=== PATIENT | male | born 1955 | race Caucasian/White ===

== ENCOUNTER 2017-01-04 09:41 | Inpatient (IN) | payer OTHER ==
[2016-12-31 10:56] LABS: HEMATOCRIT 39.7 % (40.0-51.0); HEMOGLOBIN 12.6 g/dL (13.6-17.8)
[2016-12-31 11:14] LABS: CALCIUM, SERUM 9.3 MG/DL (8.5-10.4); CHLORIDE, SERUM 102 MMOL/L (96-112); CREATININE 0.93 MG/DL (0.70-1.30); GFR AFRICAN AMERICAN 104 ML/MIN (>=60); GFR NON AFRICAN AMERICAN 90 ML/MIN (>=60); GLUCOSE, SERUM 179 MG/DL (60-99); POTASSIUM, SERUM 4.8 MMOL/L (3.5-5.3); SODIUM, SERUM 138 MMOL/L (135-148)
[2016-12-31 11:18] LABS: BUN (BLOOD UREA NITROGEN) 16 MG/DL (6-23); CO2 (CARBON DIOXIDE) 29 MMOL/L (24-34)
[2017-01-03 15:00] LABS: ALBUMIN 4.2 G/DL (3.5-5.0); ALKALINE PHOSPHATASE 85 U/L (45-117); SGOT(AST) 13 U/L (5-40); SGPT(ALT) 16 U/L (5-65); TOTAL PROTEIN 7.5 G/DL (6.0-8.5)
[2017-01-03 15:01] LABS: DIRECT BILIRUBIN < 0.1 MG/DL (0.0-0.4); INDIRECT BILIRUBIN(NOT ORDER) 0.1 MG/DL (0.1-0.9); TOTAL BILIRUBIN 0.2 MG/DL (0-1.2)
--- NOTE | ~2017-01-04 | DS ---
Discharge Summary [id number] [facility] [place] [address] NAME: GILMA PEOPLES : 59 STATUS : DIS IN PAT#: [id number] AGE: 61 ADM/REG DATE : 01/04/17 MR#: [id number] REPORT SERV DATE: 01/19/17 DICTATED BY: OK RESENDEZ DATE: 01/18/17 REPORT STATUS : Draft TRANSCRIBED BY: MARY LOU DATE: 01/18/17 Data Collection from hospitalization DISCHARGE DIAGNOSIS(ES): 1. L5-S1 spondylolisthesis with dynamic instability. 2. L4 through S1 disk disease and stenosis. 3. Lumbar radiculopathy. 4. Diabetes. 5. Hypertension. 6. Crawford esophagus. 7. Restless legs syndrome. 8. Hearing loss. 9. Gastroesophageal reflux disease. 10.Coronary artery disease. 11.History of myocardial infarction. 12.Hepatitis C. 13.Osteoarthritis. 14.Neuropathy. 15.Chronic obstructive pulmonary disease with asthma and emphysema. 16.Obstructive sleep apnea-on BiPAP at bedtime. 17.Congestive heart failure. 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 19.Depression. 20.Stage IV liver disease. 21.Former smoker. CONSULTATIONS: Karen Contreras NP PROCEDURES PERFORMED: Right-sided L4-5 and L5-S1 transforaminal lumbar interbody fusion, minimal access spine technology, local morcellized autograft, allograft bone matrix, neuromonitoring, operative microscope, placement of percutaneous pedicle screws from Medtronic L4 through S1 bilaterally, placement of Medtronic PEEK interbody spacer L4-L5, and use of intraoperative O-arm CT scan with computer navigation, 01/04/2017. PATHOLOGY: Spine, lumbar bone and tissue-fibrocartilage consistent with intervertebral disk. Benign bone fragments with degenerative changes. MEDICATIONS: Coreg 12.5 mg every morning, Colace 100 mg twice a day, Neurontin 300 mg three times a day, Prinivil 40 mg daily, melatonin 5 mg at bedtime, multivitamins one tablet daily, Prilosec 20 mg daily, MiraLAX powder one packet twice a day, Klor-Con 20 mEq daily, Zoloft 50 mg twice a day, Mylicon 80 mg after meals, Spiriva one capsule via inhaler daily, Tylenol 650 mg every four hours as needed, Mylanta 30 mL as needed, Dulcolax 15 mg as needed, Flexeril 10 mg every 8 hours as needed, Glucophage 500 mg at bedtime and 1000 mg as instructed, milk of magnesia 30 mL twice a day as needed, Percocet 5/325 one tablet every four hours as needed, Mylicon 80 mg at bedtime as needed, Ventolin one puff via inhaler every six hours as needed, aspirin 81 mg daily, and Flexeril 10 mg one tablet every 8 hours as needed for pain or spasm. Discharge Summary [address] [place]. [address] NAME: GILMA PEOPLES : 59 STATUS : DIS IN PAT#: [id number] AGE: 61 ADM/REG DATE : 01/04/17 MR#: [id number] REPORT SERV DATE: 01/19/17 DICTATED BY: OK RESENDEZ DATE: 01/18/17 REPORT STATUS : Draft TRANSCRIBED BY: MARY LOU DATE: 01/18/17 CONDITION AT DISCHARGE: Stable. DISPOSITION: The patient was discharged to [facility] on a diabetic diet with activities as instructed. HOSPITAL COURSE: This is a 61-year-old man who has intractable lower back and right lower extremity pain. He had undergone a recent right total hip arthroplasty but continued to have rather severe hip and leg pain. He said that he had a new leg length difference following the hip replacement and perhaps put some additional pressure on his spine. Treatment options were discussed, and it was elected to proceed with surgical intervention. He was admitted to the hospital at this time for further evaluation and treatment. Upon admission, he was taken to the operating room where he underwent the above-mentioned procedure. He tolerated this well and there were no complications. Postoperatively, he was seen by Karen Contreras regarding medical management. White blood cell count was 14.1. Creatinine level was 1.06. The patient has type 2 diabetes and said that he is normally just on metformin at home. His metformin was presently on hold postoperatively. He said that he checks his blood sugars once in the morning. He was placed on cardiac/diabetic diet. Level 2 sliding scale insulin was started. We were going to initiate hypoglycemia protocol. He would also undergo diabetes education. He does have congestive heart failure with an ejection fraction of 22% and a history of hypertension. He is on Coreg and this was continued as well as his Lasix. Potassium was going to be discontinued from his IV fluids. Aspirin was held. Lisinopril 80 a.m. doses were held. He is on BiPAP at home for obstructive sleep apnea. His home BiPAP would be continued here at bedtime. He does have a history of COPD, asthma, and emphysema. We would continue his daily dose of Spiriva as well as albuterol and use continuous O2 saturation monitoring to keep his saturations greater than 92% while he was on a [employer] and he would be placed on BiPAP at bedtime. Neurontin was continued for neuropathy. Zoloft was continued for his depression. His daily Prilosec was going to be continued. On postop day #1, he was evaluated by Physical Therapy. He underwent diabetes education. He complained of some increased reflux. Level 2 sliding scale insulin continued. Simethicone was added. Proton pump inhibitor was increased. On postop day #2, his pain was controlled. His dressings were changed. Discharge planning was performed. The Gomez catheter was removed. He voided several times. He wanted to go to rehab. Discharge planning was performed on 01/07/2017. He did have a small bowel movement the previous evening. Discharge instructions were given. Due to his improved and stable condition, he was discharged to [facility] with the above-stated instructions. Information collected by: Tasha Moraes I submit the above information as my discharge summary. CY/MARY LOU Ok Resendez DO / [id number] Discharge Summary [address] [address] NAME: GILMA PEOPLES : 59 STATUS : DIS IN PAT#: [id number] AGE: 61 ADM/REG DATE : 01/04/17 MR#: [id number] REPORT SERV DATE: 01/19/17 DICTATED BY: OK RESENDEZ DATE: 01/18/17 REPORT STATUS : Draft TRANSCRIBED BY: MODL DATE: 01/18/17 CC: DO Oli Forrester NP [facility]
--- NOTE | ~2017-01-04 | PREOPHP ---
PreOp History and Physical [address] [place]. [address] NAME: GILMA PEOPLES : 59 STATUS : ADM IN PAT#: [id number] AGE: 61 ADM/REG DATE : 01/04/17 MR#: [id number] REPORT SERV DATE: 01/04/17 DICTATED BY: OK RESENDEZ DATE: 01/04/17 REPORT STATUS : Draft TRANSCRIBED BY: MARY LOU DATE: 01/04/17 CHIEF COMPLAINT: Back pain and right lower extremity pain. HISTORY OF PRESENT ILLNESS: The patient is a 61-year-old gentleman, who has intractable lower back and right lower extremity pain. He underwent a recent right total hip arthroplasty, but continued to have rather severe hip and leg pain. He states that he had a new leg length difference following the hip replacement, and perhaps put some additional pressure on his spine. After discussion of the risks and benefits and failing conservative treatment, including medications and therapy, the patient elected to proceed with surgical intervention. REVIEW OF SYSTEMS: He denies chest pain, shortness of breath, and bowel or bladder changes. ALLERGIES: DENIED. HOME MEDICATIONS: Include acetaminophen, amoxicillin, aspirin, carvedilol, cephalexin, cyclobenzaprine, Lasix, gabapentin, hydrocodone, lisinopril, metformin, mupirocin, omeprazole, potassium, prednisone, sertraline, Spiriva, tizanidine, Ventolin, and warfarin. PAST MEDICAL HISTORY: Diabetes, cardiac disease with pacemaker, hepatitis, asthma, COPD, and emphysema. PHYSICAL EXAMINATION: VITAL SIGNS: Height 5 feet 9 inches, weight 325. BMI is 48. GENERAL: The patient is in no acute distress. He is well over his ideal body weight. PSYCH: Alert and oriented x3. Normal mood and affect. Gait is antalgic. VASCULAR: No extremity swelling. SPINE: Decreased lumbar motion. HEART: Regular rate and rhythm. LUNGS: Clear to auscultation. ABDOMEN: Soft, nontender, and nondistended. Good bowel sounds. BREASTS AND RECTAL: Both deferred. NEUROLOGIC: Strength in the lower extremities remains intact. No focal deficits, although the right leg does give out on ambulating. IMAGING: I have reviewed the CT and myelogram, as well as plain x-rays. He does have L4 through S1 disk disease and stenosis. Bilateral L5 pars defects with dynamic instability and grade 2 spondylolisthesis at L5-S1. ASSESSMENT: L5-S1 spondylolisthesis with dynamic instability, L4-S1 disk disease and stenosis, lumbar radiculopathy, and failed conservative treatment. PLAN: The patient presents today for surgical intervention. Consent was obtained. All questions were answered. He is ready to proceed with surgery. PreOp History and Physical [address] [address] NAME: GILMA PEOPLES : 59 STATUS : ADM IN [facility]#: [id number] AGE: 61 ADM/REG DATE : 01/04/17 MR#: [id number] REPORT SERV DATE: 01/04/17 DICTATED BY: OK RESENDEZ DATE: 01/04/17 REPORT STATUS : Draft TRANSCRIBED BY: MARY LOU DATE: 01/04/17 DELANO/MARY LOU Ok Resendez DO / [id number] CC: DO DES Forrester
--- NOTE | ~2017-01-04 | OP ---
Record Of Operation [facility] [address] [place]. [address] NAME: GILMA PEOPLES : 59 STATUS : ADM IN PAT#: [id number] AGE: 61 ADM/REG DATE : 01/04/17 MR#: [id number] REPORT SERV DATE: 01/05/17 DICTATED BY: OK RESENDEZ DATE: 01/05/17 REPORT STATUS : Draft TRANSCRIBED BY: MARY LOU DATE: 01/05/17 DATE OF PROCEDURE: 01/04/2017 PREOPERATIVE DIAGNOSIS: L5-S1 spondylolisthesis with dynamic instability, L4 through S1 disk disease and stenosis, lumbar radiculopathy. POSTOPERATIVE DIAGNOSIS: L5-S1 spondylolisthesis with dynamic instability, L4 through S1 disk disease and stenosis, lumbar radiculopathy. PROCEDURES: Right-sided L4-5 and L5-S1 transforaminal lumbar interbody fusion, minimal access spine technology, local morcellized autograft, allograft bone matrix, neuromonitoring, operative microscope, placement of percutaneous pedicle screws from Medtronic L4 through S1 bilaterally, placement of Medtronic PEEK interbody spacer L4-L5, and use of intraoperative O-arm CT scan with computer navigation. Difficulty modifier (due to the patient's morbid obesity with a height of 5 feet 9 inches, weight 325, and BMI 48), additional sets of instruments for extra long instruments were necessary as long as additional time for positioning and padding the patient and the surgery took at least 50% longer than an average case. ANESTHESIA: General. ESTIMATED BLOOD LOSS: 200 mL. COMPLICATIONS: None. INDICATIONS: The patient is a pleasant 61-year-old with intractable back and leg pain, failed conservative treatment. After discussion of risks and benefits, elected to proceed with surgical intervention. PROCEDURE IN DETAIL: I identified the patient in the holding area. Consent was obtained. Went to the operating room. Underwent general anesthesia with endotracheal intubation. Prepped and draped in the usual sterile fashion. Operative safety pause was performed, then we proceeded with surgery. O-arm registration frame was placed in the iliac crest. O-arm was brought in for intraoperative CT scan. Computer registration materials were verified and then a longitudinal incision was made on the right side over the L4-S1 level taken down through the fascial layer. Tube dilators were used to minimally invasively dissect down to the right L4-L5 interspace. Operative microscope was brought in. A leonie was used to perform a laminotomy and partial facetectomy. Kevin performed a foraminotomy. Disk was incised and disk space was prepared with curettes, rasp, and endplate cutters. Irrigation performed. Trial spacer implanted, followed by placement of local morcellized autograft, allograft bone matrix, bone morphogenic protein and a Medtronic PEEK interbody spacer with allograft bone matrix. This was repeated again at the L5-S1 level with without placement of an interbody PEEK cage due to a conjoined nerve root. There was insufficient space. The nerves could not be retracted sufficiently for the PEEK cage but local morcellized autograft, allograft bone matrix and bone morphogenic protein were placed. O-arm was brought back in for a Record Of Operation [address] [address] NAME: GILMA PEOPLES : 59 STATUS : ADM IN PAT#: [id number] AGE: 61 ADM/REG DATE : 01/04/17 MR#: [id number] REPORT SERV DATE: 01/05/17 DICTATED BY: OK RESENDEZ DATE: 01/05/17 REPORT STATUS : Draft TRANSCRIBED BY: MODCastro DATE: 01/05/[address] scan. Under computer guidance, pedicle screws from Medtronic were placed percutaneously L4 through S1. On the patient's right side, there was insufficient bone stock for the L5 screws, so that was skipped. Rods were then passed and reduced down to the screws. Set screws placed and final tightened with final AP and lateral images obtained to verify good placement of instrumentation. Irrigation performed. Hemostasis achieved. Layered closure performed prior to closure. A gram of vancomycin powder sprinkled over the surgical wounds. Sterile dressings applied. The patient awoke and extubated, taken to the recovery room in stable condition. OPERATIVE FINDINGS: L4 through S1 disk disease and stenosis. No sustained neuromonitoring alerts occurred. DELANO/MARY LOU Ok Rseendez DO / [id number] CC: Ok Resendez, DO DES GOMEZ
--- NOTE | ~2017-01-04 | CN ---
Consultation Report [facility] [address] [place]. [address] NAME: GILMA PEOPLES : 59 STATUS : ADM IN PAT#: [id number] AGE: 61 ADM/REG DATE : 01/04/17 MR#: [id number] REPORT SERV DATE: 01/05/17 DICTATED BY: KAREN DUNAWAY DATE: 01/04/17 REPORT STATUS : Draft TRANSCRIBED BY: MODL DATE: 01/04/17 CONSULTATION REPORT DATE OF CONSULTATION: 01/04/2017 REASON FOR CONSULTATION: Consulted for medical management. IDENTIFYING DATA: 1. PCP Lam Lora M.D. 2. Plug Maker, Sukhjinder Villalobos M.D. and also Mich Villalobos M.D. 3. Orthopedist in the past, Ferny Uriarte M.D. as well as presently Dr. Ok Resendez. 4. Fusing Machine Operator Manish Perdue D.O. and Dr. Grover Miller. 5. Tank Farm Operator Dr. Rubio. HISTORY OF PRESENT ILLNESS: This is a pleasant 61-year-old, male with a longstanding history of coronary artery disease, diabetes type 2, hypertension, congestive heart failure with an EF of 22%, obstructive sleep apnea on BiPAP at bedtime, hepatitis with stage IV liver disease, neuropathy, depression and GERD with a history of Crawford esophagus. The patient was admitted by Dr. Ok Resendez, with back pain and right lower extremity pain that continued after a recent right total hip arthroplasty. The patient is presently status post L4-S1 lumbar laminectomy with diskectomy and fusion on 01/04/2017. The hospitalist group has been consulted to help manage medically while the patient is inpatient. The patient's history was obtained through careful interview with the patient, as well as review of [employer] and [employer]. PAST MEDICAL HISTORY: 1. Back pain. 2. Crawford esophagus. 3. Restless legs syndrome. 4. Hearing loss. 5. GERD. 6. Diabetes type 2 with average blood sugars 140s to 150s. 7. Coronary artery disease. 8. LA. 9. Hypertension. 10.Hepatitis C. 11.Osteoarthritis. 12.Neuropathy. 13.Lumbar spinal stenosis. 14.COPD with asthma and emphysema. 15.Obstructive sleep apnea on BiPAP at bedtime. 16.Congestive heart failure, class 3 with EF 22%. Consultation Report [address] [place]. [address] NAME: GILMA PEOPLES : 59 STATUS : ADM IN [facility]#: [id number] AGE: 61 ADM/REG DATE : 01/04/17 MR#: [id number] REPORT SERV DATE: 01/05/17 DICTATED BY: KAREN DUNAWAY DATE: 01/04/17 REPORT STATUS : Draft TRANSCRIBED BY: MARY LOU DATE: 01/04/17 17.Syncope. 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 19.Colon polyps. 20.Depression. 21.Wears reading glasses. 22.Stage IV liver disease. HOME MEDICATIONS: 1. Albuterol one puff inhalation every 6 hours p.r.n. shortness of breath. 2. Enteric coated aspirin 81 mg p.o. daily. 3. Coreg 12.5 mg p.o. every morning. 4. Lasix 20 mg p.o. daily. 5. Neurontin 300 mg p.o. three times daily. 6. [place] 5/325 one to two tabs p.o. every four hours p.r.n. for pain. 7. Lisinopril 40 mg p.o. daily. 8. Melatonin 5 mg p.o. at bedtime. 9. Metformin 1000 mg p.o. with breakfast and lunch. 10.Metformin 500 mg p.o. at bedtime. 11.A multivitamin without minerals one tablet p.o. daily. 12.Prilosec 20 mg p.o. daily. 13.Potassium chloride 20 mEq p.o. daily. 14.Zoloft 50 mg p.o. twice a day. 15.Spiriva HandiHaler cap 1 cap inhalation daily. ALLERGIES: NO KNOWN ALLERGIES. THE PATIENT DOES STATE HE HAS AN INTOLERANCE TO DILAUDID WHICH CAUSES NAUSEA AND VOMITING. SOCIAL HISTORY: The patient is a . His spouse has in 2008. He has four children, one grandchild. He was a previous smoker, but quit in 2006. No alcohol or illicit drug use. His 20-year-old son does still live with him. FAMILY HISTORY: Father is from a brain tumor. Mother is from a blood clot. The patient's sister had coronary artery disease. SURGICAL HISTORY: 1. Cardiac catheterization 01/01/2000, 10/20/2005, and October 2009. 2. EGD in 2000, 2002 and 2015. 3. Colonoscopy in 2011. 4. AICD 11/19/2009 and replaced on 10/22/2016. 5. Uncemented right total hip arthroplasty 09/01/2016. 6. Right wrist surgery in 1969. 7. Sleep study on 08/13/1998 and again on 05/05/2001. 8. Till table test 02/17/2000. 9. Left total hip 07/25/2007. Consultation Report [facility] [address] [place]. [address] NAME: GILMA PEOPLES : 59 STATUS : ADM IN [facility]#: [id number] AGE: 61 ADM/REG DATE : 01/04/17 MR#: [id number] REPORT SERV DATE: 01/05/17 DICTATED BY: KAREN DUNAWAY DATE: 01/04/17 REPORT STATUS : Draft TRANSCRIBED BY: MARY LOU DATE: 01/04/17 REVIEW OF SYSTEMS: Negative other than what is included in HPI. The patient is alert and oriented x3. He has no shortness of breath. No adventitious breath sounds. No nausea and vomiting. No abdominal pain. No chest pain. No fever. Displays no confusion or agitation. PHYSICAL EXAMINATION: VITAL SIGNS: From today; blood pressure 171/91, heart rate 87, respiratory rate 21, O2 saturation 99% on 3 L nasal cannula, temperature 98.5. GENERAL: This is a very pleasant, 61-year-old obese male. He is resting in bed. No acute distress. NEURO: His head is atraumatic, normocephalic. He is alert and oriented x3. His cranial nerves are intact. His mood is pleasant and appropriate. NECK: His neck is supple. Trachea is midline. No JVD noted. No obvious thyromegaly or lymphadenopathy. EENT: His sclerae are nonicteric. Pupils are equal and reactive to light. Nares are patent. Mucous membranes moist. Tongue is midline without deviation and his soft palate rises equally with phonation. CHEST: No pain with palpation. LUNGS: Clear to auscultation bilaterally with normal respiratory effort. The patient has no increased work of breathing with conversation. CARDIOVASCULAR: S1, S2. No obvious, murmurs, rubs, or gallops. He is on defensive monitoring presently with a sinus rhythm with a rate at 96. ABDOMEN: Obese soft, nontender. Bowel sounds present. No palpable organomegaly. EXTREMITIES: Normal distal pulses. No calf tenderness. No edema. The patient has bilateral TEDs and SCDs in place for DVT prophylaxis. SKIN: Warm and dry. No unusual rashes or lesions. Normal color and turgor. PSYCH: The patient is pleasant and cooperative. Appropriate mood and affect. SURGICAL WOUND SITE: Dressing clean, dry, and intact. LABORATORY DATA: Sodium 135, potassium 5.4, chloride 106, BUN 19, creatinine 1.06, GFR 89, glucose 189, calcium 9.3, white blood cell 14.1, hemoglobin 11.9, hematocrit 36.5, platelets 189, blood sugars documented at 179, 119, 189, 193, 138. Chest x-ray postoperatively ordered for the a.m. On 12/31/2016, the patient had an ECG which displayed normal sinus rhythm with a rate of 69 with an inferior infarct, age undetermined. ASSESSMENT/PLAN: 1. The patient has diabetes type 2. He states he is normally just on metformin at home. His metformin is presently on hold postoperatively. He states he checks his blood sugars once in the morning, and he averages 140-150. We will place him on a cardiac 1800 ADA diet, initiate blood sugars a.c. and h.s. with a sliding scale level 2. Initiate hypoglycemic protocol. We will also have a wrapper counter discuss diet as well as appropriate monitoring of his blood sugars in the morning. Consultation Report [address] [place]. [address] NAME: GILMA PEOPLES : 59 STATUS : ADM IN PAT#: [id number] AGE: 61 ADM/REG DATE : 01/04/17 MR#: [id number] REPORT SERV DATE: 01/05/17 DICTATED BY: KAREN DUNAWAY DATE: 01/04/17 REPORT STATUS : Draft TRANSCRIBED BY: MARY LOU DATE: 01/04/17 2. Congestive heart failure with an EF of 22% and a history of hypertension. The patient is on Coreg which will be continued daily as well as his Lasix. He will be on strict I and O. He will be on a daily weight. We are going to discontinue his IV presently with potassium because his potassium is 5.4, as noted at 1600 hours labs. We will hold his a.m. potassium until lab is back. We will initiate 1/2 normal saline just at KVO for his TANKMAN. We will hold his aspirin, and we will hold his lisinopril a.m. doses. Of note, his creatinine is 1.06 postop. 3. Obstructive sleep apnea. He is on BiPAP at home. We will continue his home BiPAP here at bedtime. He does have a history of COPD with asthma and emphysema. We will continue his daily dose of Spiriva as well as his albuterol and use continuous O2 saturation monitoring to keep his sats greater 92% while he is on a TANKMAN, and he will be on BiPAP at bedtime. 4. Neuropathy. Aware. We will continue the patient's Neurontin. 5. Depression. Aware. We will continue the patient's Zoloft. 6. Gastroesophageal reflux disease. The patient has a history of Crawford esophagus. His daily dose of Prilosec will be continued. 7. A.m. labs; CMP, magnesium, phosphorus, CBC, hemoglobin A1c, BNP, and a portable chest x- ray for him in the a.m. The hospitalist group would like to thank you for this consultation. Please let us know if we could be of further assistance. BERE Karen Dunaway NP / [id number] CC: DO Lam Forrester II, M.D.
[~2017-01-04 09:41] MED LIST: C5 PO; COREG12 PO; GLUCOPHAGE1000 MG PO; GLUCPH PO; HALF81 PO; KLOR-CON M2020 MEQ PO; L20 PO; LISINOPRIL40 MG PO; MELATONIN5 M1 PO; MULTIPLE VIT PO; NEUR300 PO; NORCO1 TA1 PO; PCET PO; PRILO PO; SPIRIVA INH; VENTOLIN HFA INH; ZOL50 PO
[2017-01-04 16:17] LABS: BASOPHILS 0.1 %; BASOPHILS ABSOLUTE 0.02 10/3/uL (0.0-0.16); EOSINOPHILS 0.3 %; EOSINOPHILS ABSOLUTE 0.04 10/3/uL (0.0-0.53); HEMATOCRIT 36.5 % (40.0-51.0); HEMOGLOBIN 11.9 g/dL (13.6-17.8); IMMATURE GRANULOCYTES 0.7 %; LYMPHOCYTES 9.5 %; LYMPHOCYTES ABSOLUTE 1.33 10/3/uL (0.67-4.30); MANUAL DIFF NO %; MEAN CORPUS HGB CONC 32.6 g/dL (32.0-36.0); MEAN CORPUSCULAR HEMOGLOB 25.8 pg (26.0-34.0); MEAN CORPUSCULAR VOLUME 79.2 fL (80-100); MEAN PLATELET VOLUME 9.8 fL (9.2-13.0); MONOCYTES 4.3 %; MONOCYTES ABSOLUTE 0.61 10/3/uL (0.21-1.20); NEUTROPHILS 85.1 %; NEUTROPHILS ABSOLUTE 11.95 10/3/uL (2.02-8.40); PLATELET COUNT 189 10/3/uL (150-400); RED CELL COUNT 4.61 10/6/uL (4.7-6.1); WHITE BLOOD CELLS 14.1 10/3/uL (4.5-10.5)
[2017-01-04 16:35] LABS: BUN (BLOOD UREA NITROGEN) 19 MG/DL (6-23); CALCIUM, SERUM 9.3 MG/DL (8.5-10.4); CHLORIDE, SERUM 106 MMOL/L (96-112); CREATININE 1.06 MG/DL (0.70-1.30); GFR AFRICAN AMERICAN 89 ML/MIN (>=60); GFR NON AFRICAN AMERICAN 76 ML/MIN (>=60); GLUCOSE, SERUM 189 MG/DL (60-99); POTASSIUM, SERUM 5.4 MMOL/L (3.5-5.3); SODIUM, SERUM 135 MMOL/L (135-148)
[2017-01-04 16:40] LABS: CO2 (CARBON DIOXIDE) 22 MMOL/L (24-34)
[2017-01-05 05:05] LABS: BASOPHILS 0.1 %; BASOPHILS ABSOLUTE 0.01 10/3/uL (0.0-0.16); EOSINOPHILS 0.4 %; EOSINOPHILS ABSOLUTE 0.04 10/3/uL (0.0-0.53); HEMATOCRIT 32.5 % (40.0-51.0); HEMOGLOBIN 10.6 g/dL (13.6-17.8); IMMATURE GRANULOCYTES 0.4 %; IMMATURE GRANULOCYTES ABSOLUTE 0.04 10/3/uL (0.0-0.11); LYMPHOCYTES 16.1 %; LYMPHOCYTES ABSOLUTE 1.66 10/3/uL (0.67-4.30); MANUAL DIFF NO %; MEAN CORPUS HGB CONC 32.6 g/dL (32.0-36.0); MEAN CORPUSCULAR HEMOGLOB 26.2 pg (26.0-34.0); MEAN CORPUSCULAR VOLUME 80.2 fL (80-100); MEAN PLATELET VOLUME 10.1 fL (9.2-13.0); MONOCYTES 8.9 %; MONOCYTES ABSOLUTE 0.92 10/3/uL (0.21-1.20); NEUTROPHILS 74.1 %; NEUTROPHILS ABSOLUTE 7.64 10/3/uL (2.02-8.40); PLATELET COUNT 162 10/3/uL (150-400); RED CELL COUNT 4.05 10/6/uL (4.7-6.1); WHITE BLOOD CELLS 10.3 10/3/uL (4.5-10.5)
[2017-01-05 05:32] LABS: BUN (BLOOD UREA NITROGEN) 18 MG/DL (6-23); CALCIUM, SERUM 8.7 MG/DL (8.5-10.4); CHLORIDE, SERUM 104 MMOL/L (96-112); CO2 (CARBON DIOXIDE) 24 MMOL/L (24-34); CREATININE 0.73 MG/DL (0.70-1.30); GFR AFRICAN AMERICAN 118 ML/MIN (>=60); GFR NON AFRICAN AMERICAN 102 ML/MIN (>=60); PHOSPHORUS, SERUM 3.2 MG/DL (2.5-4.5); SGOT(AST) 31 U/L (5-40); SGPT(ALT) 20 U/L (5-65); SODIUM, SERUM 137 MMOL/L (135-148); TOTAL BILIRUBIN 0.5 MG/DL (0-1.2); TOTAL PROTEIN 6.4 G/DL (6.0-8.5)
[2017-01-05 05:34] LABS: ALBUMIN 3.2 G/DL (3.5-5.0); ALKALINE PHOSPHATASE 58 U/L (45-117); GLOBULIN 3.2 G/DL (2.5-4.1); GLUCOSE, SERUM 146 MG/DL (60-99); POTASSIUM, SERUM 4.3 MMOL/L (3.5-5.3)
[2017-01-05 05:44] LABS: B NATRIURETIC PEPTIDE (BNP) 186.9 PG/ML (< 100.0)
[2017-01-05 12:30] LABS: GLYCOHEMOGLOBIN (HbA1c) 6.6 % (4.7-6.1)
[2017-01-06 05:12] LABS: BASOPHILS 0.1 %; BASOPHILS ABSOLUTE 0.01 10/3/uL (0.0-0.16); EOSINOPHILS 0.4 %; EOSINOPHILS ABSOLUTE 0.04 10/3/uL (0.0-0.53); HEMATOCRIT 31.3 % (40.0-51.0); HEMOGLOBIN 10.3 g/dL (13.6-17.8); IMMATURE GRANULOCYTES 0.3 %; IMMATURE GRANULOCYTES ABSOLUTE 0.03 10/3/uL (0.0-0.11); LYMPHOCYTES 13.6 %; LYMPHOCYTES ABSOLUTE 1.42 10/3/uL (0.67-4.30); MEAN CORPUS HGB CONC 32.9 g/dL (32.0-36.0); MEAN CORPUSCULAR HEMOGLOB 26.1 pg (26.0-34.0); MEAN CORPUSCULAR VOLUME 79.2 fL (80-100); MONOCYTES 12.1 %; MONOCYTES ABSOLUTE 1.26 10/3/uL (0.21-1.20); NEUTROPHILS 73.5 %; NEUTROPHILS ABSOLUTE 7.67 10/3/uL (2.02-8.40); PLATELET COUNT 145 10/3/uL (150-400); RBC DISTRIBUTION WIDTH 14.9 % (12.0-16.0); RED CELL COUNT 3.95 10/6/uL (4.7-6.1); WHITE BLOOD CELLS 10.4 10/3/uL (4.5-10.5)
[2017-01-06 05:13] LABS: MANUAL DIFF NO %
[2017-01-06 05:26] LABS: CALCIUM, SERUM 8.8 MG/DL (8.5-10.4); CHLORIDE, SERUM 100 MMOL/L (96-112); CREATININE 0.75 MG/DL (0.70-1.30); GFR AFRICAN AMERICAN 116 ML/MIN (>=60); GFR NON AFRICAN AMERICAN 100 ML/MIN (>=60); GLUCOSE, SERUM 170 MG/DL (60-99); POTASSIUM, SERUM 3.9 MMOL/L (3.5-5.3); SODIUM, SERUM 135 MMOL/L (135-148)
[2017-01-06 05:27] LABS: BUN (BLOOD UREA NITROGEN) 11 MG/DL (6-23); CO2 (CARBON DIOXIDE) 29 MMOL/L (24-34)
[2017-01-07 04:34] LABS: BASOPHILS 0.1 %; BASOPHILS ABSOLUTE 0.01 10/3/uL (0.0-0.16); HEMATOCRIT 30.4 % (40.0-51.0); HEMOGLOBIN 9.7 g/dL (13.6-17.8); IMMATURE GRANULOCYTES 0.3 %; IMMATURE GRANULOCYTES ABSOLUTE 0.03 10/3/uL (0.0-0.11); LYMPHOCYTES 11.2 %; MEAN CORPUS HGB CONC 31.9 g/dL (32.0-36.0); MEAN CORPUSCULAR HEMOGLOB 25.3 pg (26.0-34.0); MEAN CORPUSCULAR VOLUME 79.4 fL (80-100); MEAN PLATELET VOLUME 9.9 fL (9.2-13.0); MONOCYTES 11.1 %; MONOCYTES ABSOLUTE 1.09 10/3/uL (0.21-1.20); NEUTROPHILS 76.3 %; NEUTROPHILS ABSOLUTE 7.48 10/3/uL (2.02-8.40); PLATELET COUNT 150 10/3/uL (150-400); RBC DISTRIBUTION WIDTH 15.1 % (12.0-16.0); RED CELL COUNT 3.83 10/6/uL (4.7-6.1); WHITE BLOOD CELLS 9.8 10/3/uL (4.5-10.5)
[2017-01-07 04:37] LABS: BUN (BLOOD UREA NITROGEN) 14 MG/DL (6-23); CALCIUM, SERUM 8.4 MG/DL (8.5-10.4); CHLORIDE, SERUM 100 MMOL/L (96-112); CO2 (CARBON DIOXIDE) 29 MMOL/L (24-34); CREATININE 0.71 MG/DL (0.70-1.30); GFR AFRICAN AMERICAN 119 ML/MIN (>=60); GFR NON AFRICAN AMERICAN 103 ML/MIN (>=60); GLUCOSE, SERUM 187 MG/DL (60-99); MANUAL DIFF NO %; POTASSIUM, SERUM 3.8 MMOL/L (3.5-5.3); SODIUM, SERUM 135 MMOL/L (135-148)
== END 2017-01-07 20:00 | DRG 460 ==
LOC: SDC/OF 09:41 → 3SO 19:33
PROVIDERS: Nurse Practitioner; Nurse Practitioner Family; Orthopaedic Surgery
PROC: 0SG00AJ Fusion of Lumbar Vertebral Joint with Interbody Fusion Device, Posterior Approach, Anterior Column, Open Approach (ICD-10-PCS; principal; 2017-01-04 11:30)
PROC: 0SG30AJ Fusion of Lumbosacral Joint with Interbody Fusion Device, Posterior Approach, Anterior Column, Open Approach (ICD-10-PCS; 2017-01-04 11:30)
PROC: 4A11X4G Monitoring of Peripheral Nervous Electrical Activity, Intraoperative, External Approach (ICD-10-PCS; 2017-01-04 11:30)
DX: M51.16 Intervertebral disc disorders with radiculopathy, lumbar region (principal); I11.0 Hypertensive heart disease with heart failure; I50.22 Chronic systolic (congestive) heart failure; Z68.42 Body mass index [BMI] 45.0-49.9, adult; E66.01 Morbid (severe) obesity due to excess calories; E11.9 Type 2 diabetes mellitus without complications; G47.33 Obstructive sleep apnea (adult) (pediatric); K21.9 Gastro-esophageal reflux disease without esophagitis; F32.9 Major depressive disorder, single episode, unspecified
CPT/HCPCS: 71010; 80048; 80053; 80076; 82962; 83036; 83735; 83880; 84100; 84443; 85014; 85018; 85025; 87641; 88304; 88311; 93005; 94660; 97116-GP; 97161-GP; A9270-GY; C1713; C1715; J0330; J0690; J1644; J2250; J2270; J2370; J2405; J2710; J3010; J3370